=== PATIENT | male | born 1995 | race Caucasian/White ===

== ENCOUNTER 2016-07-15 20:49 | Emergency (ER) | payer BC ==
[2016-07-15 20:53] VITALS: PULSE 77; TEMP 98.4
[2016-07-15] MEDS ORDERED: NS 1,000 ML IV ONE (21:05)
[2016-07-15 21:10] LABS: % IMMATURE GRANULYOCYTES 0.5 % (0.0-1.1); ABSOLUTE IMMATURE GRANULOCYTES 0.02 10^3/uL (0.00-0.10); ADD DIFF? NO; ADD MORPH? NO; ADD SCAN? NO; ATYPICAL LYMPHOCYTE FLAG 50 (0-99); FRAGMENT RBC FLAG 0 (0-99); HEMATOCRIT 40.2 % (40.0-51.0); HEMOGLOBIN 14.5 g/dL (13.7-17.5); LEFT SHIFT FLG 0 (0-99); LIPEMIA HEMOLYSIS FLAG 90 (0-99); MEAN CELL HEMOGLOBIN 33.1 pg (27.9-34.1); MEAN CELL HEMOGLOBIN CONCENTR. 36.1 g/dL (32.4-36.7); MEAN CELL VOLUME 91.8 fL (81.5-99.8); MEAN PLATELET VOLUME 8.1 fL (8.7-11.7); PLATELET CLUMPS FLAG 0 (0-99); PLATELET COUNT 191 10^3/uL (150-400); RED BLOOD CELL COUNT 4.38 10^6/uL (4.40-6.38); RED CELL DISTRIBUTION WIDTH 11.9 % (11.5-15.2)
--- NOTE | 2016-07-15 21:15 | EDPHY ---
H & P Time Seen by Provider: 07/15/16 21:04 HPI/ROS: CHIEF COMPLAINT: Abdominal pain HISTORY OF PRESENT ILLNESS: This patient is an intoxicated 21 year old male who presents to the Emergency Department complaining of acute episodic right-lower quadrant abdominal pain beginning last night when walking home from the bar. His pain resolved prior to waking up this morning, and he felt normal today. His pain reappeared tonight after drinking alcohol. Upon arrival, he complains of moderate pain without any identified alleviating or exacerbating factors. He denies nausea, vomiting, fever or chills, groin pain, or additional complaints. No pertinent medical history; no history of abdominal surgeries. REVIEW OF SYSTEMS: Constitutional: No fever, no chills Eyes: No visual changes ENT: No sore throat Respiratory: No cough, no shortness of breath Cardiac: No chest pain Gastrointestinal: +RLQ abdominal pain, no nausea, no vomiting, no diarrhea Genitourinary: No hematuria, no dysuria Musculoskeletal: No leg pain or swelling Skin: No rash Neurological: No headache, no numbness, no weakness Psychiatric: No depression Past Medical/Surgical History: Denies. Social History: Drinks socially. Occasional smoker. Group of friends at bedside. Smoking Status: Current some day smoker Physical Exam: General Appearance: Alert, appears intoxicated, slurred speech Eyes: Pupils equal and round, no conjunctival pallor or injection ENT, Mouth: Mucous membranes moist Neck: Normal inspection Respiratory: Lungs are clear to auscultation Cardiovascular: Regular rate and rhythm Gastrointestinal: Abdomen is soft, RLQ tenderness Neurological: A&O, nonfocal, normal gait Skin: Warm and dry, no rash Extremities: Nontender, no pedal edema Psychiatric: Mood and affect normal Constitutional: Initial Vital Signs Temperature (C) 36.9 C 07/15/16 20:52 Heart Rate 77 07/15/16 20:52 Respiratory Rate 18 07/15/16 20:52 Blood Pressure 147/52 H 07/15/16 20:52 O2 Sat (%) 93 07/15/16 20:52 O2 Delivery Mode Room Air Allergies/Adverse Reactions: No Known Allergies Allergy (Unverified 07/15/16 20:54) Home Medications: Medication Instructions Recorded NK [No Known Home Meds] 07/15/16 Medical Decision Making - Diagnostics Imaging: CT of the abdomen obtained and is negative for appendicitis but positive for mild ileitis. 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 Radiologist report is pending at this time. ED Course/Re-evaluation: This normally healthy 21 year old male presents following two episodes of RLQ abdominal pain beginning last night and reappearing tonight. On exam, he is positive for RLQ tenderness suspicious for appendicitis. Will proceed with CT of the abdomen. IV established. No pain medications administered at this time due to the patient 's alcohol intoxication. 2216: On reevaluation, the patient has mild abdominal pain. 30mg IV Toradol will be administered prior to discharge. I discussed imaging results with the patient who is relieved. He will be discharged home in good condition with instructions to follow-up with her primary care provider for further evaluation. He understands customary return precautions. Differential Diagnosis: The differential diagnosis for the patient's abdominal pain included but was not limited to appendicitis, cholecystitis, hernias, testicular torsion, gastritis, and urinary tract infection. - Data Points Laboratory Results: Laboratory Results 07/15/16 21:00 07/15/16 21:00 07/15/16 07/15/16 21:00 21:00 WBC 4.37 10^3/uL 10^3/uL (3.80-9.50) RBC 4.38 10^6/uL L 10^6/uL (4.40-6.38) Hgb 14.5 g/dL g/dL (13.7-17.5) Hct 40.2 % % (40.0-51.0) MCV 91.8 fL fL (81.5-99.8) MCH 33.1 pg pg (27.9-34.1) MCHC 36.1 g/dL g/dL (32.4-36.7) RDW 11.9 % % (11.5-15.2) Plt Count 191 10^3/uL 10^3/uL (150-400) MPV 8.1 fL L fL (8.7-11.7) Neut % (Auto) 58.2 % % (39.3-74.2) Lymph % (Auto) 32.5 % % (15.0-45.0) Morgan % (Auto) 7.8 % % (4.5-13.0) Eos % (Auto) 0.5 % L % (0.6-7.6) Baso % (Auto) 0.5 % % (0.3-1.7) Nucleat RBC Rel Count 0.0 % % (0.0-0.2) Absolute Neuts (auto) 2.55 10^3/uL 10^3/uL (1.70-6.50) Absolute Lymphs (auto) 1.42 10^3/uL 10^3/uL (1.00-3.00) Absolute Monos (auto) 0.34 10^3/uL 10^3/uL (0.30-0.80) Absolute Eos (auto) 0.02 10^3/uL L 10^3/uL (0.03-0.40) Absolute Basos (auto) 0.02 10^3/uL 10^3/uL (0.02-0.10) Absolute Nucleated RBC 0.00 10^3/uL 10^3/uL (0-0.01) Immature Gran % 0.5 % % (0.0-1.1) Immature Gran # 0.02 10^3/uL 10^3/uL (0.00-0.10) Sodium 144 mEq/L mEq/L (134-144) Potassium 4.4 mEq/L mEq/L (3.5-5.2) Chloride 105 mEq/L mEq/L (97-110) Carbon Dioxide 23 mEq/l mEq/l (22-31) Anion Gap 16 mEq/L mEq/L (8-16) BUN 15 mg/dL mg/dL (7-23) Creatinine 1.1 mg/dL mg/dL (0.7-1.3) Estimated GFR > 60 Glucose 97 mg/dL mg/dL (70-100) Calcium 9.0 mg/dL mg/dL (8.5-10.4) Ethyl Alcohol 267 mg/dL H mg/dL (0-10) Medications Given: Discontinued Medications Sodium Chloride (Ns) 1,000 mls @ 0 mls/hr IV ONCE ONE PRN Reason: Wide Open Stop: 07/15/16 21:06 Last Admin: 07/15/16 21:20 Dose: 1,000 mls Ketorolac Tromethamine (Toradol) 30 mg IVP EDNOW ONE Stop: 07/15/16 22:18 Last Admin: 07/15/16 22:32 Dose: 30 mg Departure - Departure Disposition: Home, Routine, Self-Care Clinical Impression: Ileitis, Abdominal pain, acute Condition: Good Instructions: Abdominal Pain (ED) Additional Instructions: 1. You do not have evidence of appendicitis on your CT scan. 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 Follow-up with your primary care provider for further evaluation of this. 2. Rest and drink plenty of fluids over the next few days. Avoid alcohol use until your symptoms have subsided. 3. Return to the Emergency Department if you experience high fever or chills, severe abdominal pain, diarrhea or vomiting, blood in your urine or stool, or for other serious concerns. Referrals: PUCKETT,UNKNOWN [Other] - As per Instructions JASON Torres,. [Clinic] - As per Instructions Report Scribed for: Imelda Chan Report Scribed by: Sandrine Gomez Date of Report: 07/15/16 Time of Report: 21:08 Physician Review and Approval Statement: 07/15/16 21:08 Portions of this note were transcribed by a manager medical device. I personally performed a history, physical exam, medical decision making, and confirmed accuracy of information the transcribed note.
[2016-07-15 21:19] LABS: ANION GAP 16 mEq/L (8-16); CARBON DIOXIDE 23 mEq/l (22-31); CHLORIDE 105 mEq/L (97-110); CREATININE 1.1 mg/dL (0.7-1.3); GLOMERULAR FILTRATION RATE > 60; GLUCOSE 97 mg/dL (70-100); POTASSIUM 4.4 mEq/L (3.5-5.2); SODIUM 144 mEq/L (134-144)
[2016-07-15] MEDS ORDERED: IOPAMIDOL (ISOVUE-300) 100 ML BTL IV ONE (21:25)
[2016-07-15 21:30] LABS: ETHANOL SERUM 267 mg/dL (0-10)
[2016-07-15] MEDS ORDERED: KETOROLAC 30 MG/1 ML SDV IVP ONE (22:17)
[2016-07-15 22:32] VITALS: BP 130/79; RESP 14; O2SAT 94
== END 2016-07-15 23:10 | disposition home or self-care (01) ==
DX: K52.9 Noninfective gastroenteritis and colitis, unspecified (principal); F17.200 Nicotine dependence, unspecified, uncomplicated
CPT/HCPCS: 96374; G0480; J1885; Q9967